=== PATIENT | male | born 1965 | race African-American/Black ===

== ENCOUNTER → 2022-05-09 | Day surgery (SDC) | payer BC, OTHER ==
[2022-05-07 12:32] VITALS: BMI 21.5
[~2022-05-09] MED LIST: ACETAMINOPHEN 325 MG TABLET (FP) PO PRN; CYCLOPENTOLATE HCL 1% OPHTH SOLN 2 ML BOTTLE ONE; INSULIN (NOVOLOG) ASPART 100 UNITS/ML 10ML VIAL SQ ONE; KETOROLAC TROMETHAMINE 0.5% EYE DROP 1 DROP DROPS ONE; LIDOCAINE HCL/PF 1% SDV 5ML VIAL ONE; OFLOXACIN 0.3% OPHTHALMIC SOLUTION 5 ML BOTTLE ONE; PHENYLEPHRINE 2.5% OPTHALMIC DROP 2ML BOTTLE ONE; POVIDONE-IODINE 5% OPHTHALMIC PREP 30 ML SOLUTION ONE; TROPICAMIDE 1% OPHTH SOLN 15 ML BOTTLE ONE
[2022-05-09] MEDS: TROPICAMIDE 1% OPHTH SOLN 15 ML BOTTLE OP SCH ×3 (08:45→09:55)
[2022-05-09] MEDS: CYCLOPENTOLATE HCL 1% OPHTH SOLN 2 ML BOTTLE OP SCH ×3 (08:45→08:55)
[2022-05-09] MEDS: KETOROLAC TROMETHAMINE 0.5% EYE DROP 1 DROP DROPS OP SCH ×3 (08:45→08:55)
[2022-05-09] MEDS: PHENYLEPHRINE 2.5% OPHTH SOLN 15 ML BOTTLE OP SCH ×3 (08:45→08:55)
[2022-05-09] MEDS: OFLOXACIN 0.3% OPHTHALMIC SOLUTION 5 ML BOTTLE OP SCH ×3 (08:45→08:55)
[2022-05-09 09:13] VITALS: BP 165/83; PULSE 69; RESP 20; TEMP 97.3
== END | disposition home or self-care (01) ==
LOC: JASU-SURG 04:32
PROVIDERS: ATTEND Ophthalmology
DX: Z53.8 Procedure and treatment not carried out for other reasons (principal)
CPT/HCPCS: 82962